=== PATIENT | male | born 1960 | race Caucasian/White ===

== ENCOUNTER 2023-02-17 20:34 | Inpatient (IN) | payer BC, OTHER ==
[2023-02-17 21:01] LABS: #Basophils 0.1 thou/uL (0.0-0.2); #Eosinphils 0.2 thou/uL (0.0-0.7); #Monocytes 0.6 thou/uL (0.11-0.59); #Neutrophils 7.4 thou/uL (1.40-6.50); %Basophils 0.5 % (0.0-1.0); %Eosinophils 1.9 % (0.0-10.0); %Lymphocytes 15.4 % (21.0-51.0); %Monocytes 5.7 % (0.0-10.0); %Neutrophils 76.2 % (42.0-75.0); Hematocrit 51.7 % (42.0-52.0); Hemoglobin 18.1 g/dL (14.0-18.0); Mean Corpuscular Volume 91.5 fl (78.0-98.0); Mean Platelet Volume 9.2 fL (7.4-10.4); Platelet Count 212 10x3/uL (130-400); RBC Distribution Width 13.2 % (11.5-14.5); Red Blood Cell (RBC) Count 5.65 mill/uL (4.70-6.10); White Blood Cell (WBC) Count 9.7 10x3/uL (4.8-10.8)
[2023-02-17 21:24] LABS: Phosphorus 4.3 mg/dL (2.3-4.7)
[2023-02-17 21:26] LABS: ALT (SGPT) 43 U/L (8-55); AST (SGOT) 31 U/L (5-34); Albumin 4.7 g/dL (3.4-4.8); Alkaline Phosphatase 101 U/L (40-110); Anion Gap 15 mmol/L (10-20); BUN (Urea Nitrogen) 22 mg/dL (8.4-25.7); Bilirubin, Total 0.5 mg/dL (0.2-1.2); Calc. Creatinine Clearance 0 mL/min (70-130); Carbon Dioxide 25 mmol/L (23-31); Chloride 99 mmol/L (98-107); Estimated GFR 92; Globulin 2.2 g/dL (2.4-3.5); Glucose 150 mg/dL (80-115); Lipase 30 U/L (8-78); Magnesium 2.1 mg/dL (1.6-2.6); Potassium 4.6 mmol/L (3.5-5.1); Protein, Total 6.9 g/dL (5.8-8.1); Sodium 134 mmol/L (136-145)
[2023-02-17 21:30] LABS: Troponin I Less than 0.010 ng/mL (< 0.028)
[2023-02-17 22:06] LABS: Actual Bicarbonate (HCO3v) 23.5 mEq/L (22-28); Analyzer IN Cardio ER; Base Excess -0.5 mEq/L (-2.0 to +3.0); Calcium, Ionized (venous) 1.17 mmol/L (1.16-1.32); Chloride (VBG) 99 mmol/L (98-106); Hematocrit-VBG 52 % (42.0-52.0); Hemoglobin (Hb) 17.8 g/dL (13.1-17.2); Potassium (VBG) 4.41 mmol/L (3.70-5.30); Sodium 132 mmol/L (133-146)
[2023-02-17 23:47] LABS: Bacteria/HPF None Seen HPF (None Seen); Bilirubin Negative (Negative); Blood, Urine Negative (Negative); CAUTI Indications for Culture Alt mental st,lethar; Clarity Clear (Clear); Glucose, Urine (Dipstick) Normal (Negative); Ketone, Urine 10 mg/dL (Negative); Leukocyte Negative Leu/uL (Negative); Nitrite Negative (Negative); Protein, Urine (Dipstick) Negative (Neg-Trace); RBC/HPF 0-3 HPF (0-3); Squamous Epithelial 0-3 HPF (0-3); WBC/HPF 0-3 HPF (0-3); pH, Urine 5.5 (5.0-9.0)
[2023-02-17 23:52] LABS: Urine Culture Reflex No No
[2023-02-18] MEDS ORDERED: Ondansetron PF 4 MG/2 ML Vial IVP PRN ×2 (00:18→00:30)
[2023-02-18] MEDS ORDERED: Acetaminophen 650 MG Suppository PR PRN (00:18)
[2023-02-18] MEDS ORDERED: Ondansetron ODT 4 MG TAB PO PRN (00:18)
[2023-02-18] MEDS ORDERED: Acetaminophen 325 MG TAB PO PRN (00:30)
[2023-02-18] MEDS ORDERED: Ondansetron ODT 4 MG TAB SL PRN (00:30)
[2023-02-18 03:02] VITALS: BMI 35.6
[2023-02-18 04:08] LABS: #Eosinphils 0.1 thou/uL (0.0-0.7); #Monocytes 0.4 thou/uL (0.11-0.59); #Neutrophils 6.9 thou/uL (1.40-6.50); %Basophils 0.4 % (0.0-1.0); %Eosinophils 1.3 % (0.0-10.0); %Lymphocytes 16.8 % (21.0-51.0); %Monocytes 4.2 % (0.0-10.0); Hematocrit 48.3 % (42.0-52.0); Hemoglobin 16.8 g/dL (14.0-18.0); Mean Corpuscular HGB CONC 34.8 g/dL (32.0-36.0); Mean Corpuscular Hemoglobin 31.8 pg (27.0-31.0); Mean Corpuscular Volume 91.5 fl (78.0-98.0); Mean Platelet Volume 9.5 fL (7.4-10.4); Platelet Count 199 10x3/uL (130-400); RBC Distribution Width 13.2 % (11.5-14.5); Red Blood Cell (RBC) Count 5.28 mill/uL (4.70-6.10)
[2023-02-18 04:38] LABS: Anion Gap 12 mmol/L (10-20); BUN (Urea Nitrogen) 19 mg/dL (8.4-25.7); Calc. Creatinine Clearance 105 mL/min (70-130); Calcium 9.9 mg/dL (7.8-10.44); Carbon Dioxide 29 mmol/L (23-31); Chloride 98 mmol/L (98-107); Estimated GFR 88; Glucose 221 mg/dL (80-115); Potassium 4.5 mmol/L (3.5-5.1); Sodium 134 mmol/L (136-145)
[2023-02-18 06:52] LABS: Hemoglobin A1c 6.7 % (4.0-6.0)
[2023-02-18] MEDS: Aspirin 81 mg Enteric Coated Tablet PO SCH (09:14)
[2023-02-18] MEDS ORDERED: Amoxicillin/Potassium Clav 875 MG TAB PO SCH (11:00)
[2023-02-18] MEDS: Amoxicillin/Potassium Clav 875 MG TAB PO SCH ×2 (11:16→21:30)
[2023-02-18] MEDS ORDERED: ALPRAZolam 0.5 MG TAB PO PRN (12:00)
[2023-02-18] MEDS ORDERED: NIFEdipine XL 30 MG ER.TAB PO SCH (12:15)
[2023-02-18 12:19] LABS: HIV (1/2) Antibody/Antigen Non-Reactive (NonReactive); HIV 1/2 INDEX 0.23 S/CO (<1.00)
[2023-02-18] MEDS: hydrOXYzine 25 MG TAB PO PRN (13:36)
[2023-02-18] MEDS ORDERED: Labetalol HCl 100 MG/20 ML VIAL SLOW IVP SCH (17:00)
[2023-02-18] MEDS: Atorvastatin Calcium 40 MG TAB PO SCH (21:30)
[2023-02-18] MEDS: Acetaminophen 325 MG TAB PO PRN (21:30)
[2023-02-19] MEDS ORDERED: Gabapentin 100 MG CAP PO SCH ×3 (02:30→22:45)
[2023-02-19 04:56] LABS: Hematocrit 48.7 % (42.0-52.0); Hemoglobin 17.4 g/dL (14.0-18.0); Mean Corpuscular HGB CONC 35.7 g/dL (32.0-36.0); Mean Corpuscular Hemoglobin 31.9 pg (27.0-31.0); Mean Corpuscular Volume 89.2 fl (78.0-98.0); Mean Platelet Volume 9.6 fL (7.4-10.4); Platelet Count 190 10x3/uL (130-400); RBC Distribution Width 12.9 % (11.5-14.5); Red Blood Cell (RBC) Count 5.46 mill/uL (4.70-6.10); White Blood Cell (WBC) Count 8.6 10x3/uL (4.8-10.8)
[2023-02-19 05:21] LABS: Anion Gap 13 mmol/L (10-20); BUN (Urea Nitrogen) 18 mg/dL (8.4-25.7); Calc. Creatinine Clearance 132 mL/min (70-130); Calcium 9.8 mg/dL (7.8-10.44); Carbon Dioxide 24 mmol/L (23-31); Chloride 99 mmol/L (98-107); Estimated GFR 101; Glucose 147 mg/dL (80-115); Potassium 3.9 mmol/L (3.5-5.1); Sodium 132 mmol/L (136-145)
[2023-02-19] MEDS ORDERED: NIFEdipine XL 30 MG ER.TAB PO SCH (09:00)
[2023-02-19] MEDS: Aspirin 81 mg Enteric Coated Tablet PO SCH (09:06)
[2023-02-19] MEDS: Amoxicillin/Potassium Clav 875 MG TAB PO SCH ×2 (09:06→20:52)
[2023-02-19 12:19] LABS: Syphilis Antibody Nonreactive (Nonreactive); Syphilis Antibody Index 0.02 S/CO (<1.00 Non-Reactive)
[2023-02-19] MEDS: hydrOXYzine 25 MG TAB PO PRN (14:39)
[2023-02-19] MEDS: Gabapentin 100 MG CAP PO SCH (20:52)
[2023-02-19] MEDS: NIFEdipine XL 30 MG ER.TAB PO SCH (20:53)
[2023-02-19] MEDS: Atorvastatin Calcium 40 MG TAB PO SCH (20:53)
[2023-02-19 22:27] LABS: Troponin I Less than 0.010 ng/mL (< 0.028)
[2023-02-20] MEDS: Gabapentin 100 MG CAP PO SCH ×2 (08:04→21:21)
[2023-02-20] MEDS: Amoxicillin/Potassium Clav 875 MG TAB PO SCH ×2 (08:04→21:21)
[2023-02-20] MEDS: NIFEdipine XL 30 MG ER.TAB PO SCH ×2 (08:04→21:22)
[2023-02-20] MEDS: Aspirin 81 mg Enteric Coated Tablet PO SCH (08:04)
[2023-02-20] MEDS ORDERED: ALPRAZolam 0.5 MG TAB PO PRN (09:50)
[2023-02-20] MEDS: Loratadine 10 MG TAB PO PRN ×2 (15:18→21:25)
[2023-02-20] MEDS ORDERED: Metoprolol Tartrate 5 MG/5 ML VIAL IVP SCH (18:32)
[2023-02-20] MEDS: Atorvastatin Calcium 40 MG TAB PO SCH (21:21)
[2023-02-20] MEDS: Melatonin 3 MG TAB PO PRN (21:37)
[2023-02-21] MEDS ORDERED: Metoclopramide HCl 10 MG/2 ML VIAL IVP SCH (04:15)
[2023-02-21] MEDS: NIFEdipine XL 30 MG ER.TAB PO SCH ×2 (10:19→21:17)
[2023-02-21] MEDS: Aspirin 81 mg Enteric Coated Tablet PO SCH (10:19)
[2023-02-21] MEDS: Amoxicillin/Potassium Clav 875 MG TAB PO SCH ×2 (10:19→21:17)
[2023-02-21] MEDS: Fluticasone Propionate Nasal Spray 16 gm Bottle NASAL SCH (10:20)
[2023-02-21] MEDS: Cyanocobalamin (Vitamin B-12) 1,000 MCG TAB PO SCH (10:20)
[2023-02-21] MEDS: Gabapentin 100 MG CAP PO SCH ×2 (10:20→21:16)
[2023-02-21] MEDS ORDERED: Calcium Carbonate 500 MG ChewTAB PO SCH (20:15)
[2023-02-21] MEDS ORDERED: ALPRAZolam 0.5 MG TAB PO SCH (21:00)
[2023-02-22 04:18] LABS: Hematocrit 50.5 % (42.0-52.0); Hemoglobin 17.9 g/dL (14.0-18.0); Mean Corpuscular HGB CONC 35.4 g/dL (32.0-36.0); Mean Corpuscular Hemoglobin 31.6 pg (27.0-31.0); Mean Corpuscular Volume 89.1 fl (78.0-98.0); Mean Platelet Volume 9.4 fL (7.4-10.4); Platelet Count 234 10x3/uL (130-400); RBC Distribution Width 12.6 % (11.5-14.5); Red Blood Cell (RBC) Count 5.67 mill/uL (4.70-6.10); White Blood Cell (WBC) Count 9.2 10x3/uL (4.8-10.8)
[2023-02-22] MEDS: Cyanocobalamin (Vitamin B-12) 1,000 MCG TAB PO SCH (08:51)
[2023-02-22] MEDS: NIFEdipine XL 30 MG ER.TAB PO SCH ×2 (08:51→20:36)
[2023-02-22] MEDS: Gabapentin 100 MG CAP PO SCH ×2 (08:51→20:31)
[2023-02-22] MEDS: Fluticasone Propionate Nasal Spray 16 gm Bottle NASAL SCH (08:51)
[2023-02-22] MEDS: Thiamine 100 MG TAB PO SCH (08:51)
[2023-02-22] MEDS: Amoxicillin/Potassium Clav 875 MG TAB PO SCH ×2 (08:51→20:31)
[2023-02-22 08:56] LABS: Anion Gap 15 mmol/L (10-20); BUN (Urea Nitrogen) 17 mg/dL (8.4-25.7); Calc. Creatinine Clearance 129 mL/min (70-130); Calcium 10.1 mg/dL (7.8-10.44); Carbon Dioxide 24 mmol/L (23-31); Chloride 98 mmol/L (98-107); Estimated GFR 100; Glucose 157 mg/dL (80-115); Sodium 133 mmol/L (136-145)
[2023-02-22] MEDS ORDERED: Calcium Carbonate 500 MG ChewTAB PO PRN (09:00)
[2023-02-22] MEDS ORDERED: Magnevist 469MG/ML 20 ML VIAL ONE (11:27)
[2023-02-22] MEDS ORDERED: ALPRAZolam 0.5 MG TAB PO SCH (14:45)
[2023-02-22] MEDS: ALPRAZolam 0.5 MG TAB PO PRN ×2 (14:50→22:11)
[2023-02-22] MEDS ORDERED: Metoprolol Tartrate 5 MG/5 ML VIAL IVP PRN (16:18)
[2023-02-22] MEDS ORDERED: Losartan 25 MG TAB PO SCH (16:18)
[2023-02-22] MEDS: hydrOXYzine 25 MG TAB PO PRN (16:35)
[2023-02-22] MEDS: Acetaminophen 325 MG TAB PO PRN (16:39)
[2023-02-22] MEDS ORDERED: Polyethylene Glycol 3350 17 GM Packet PO PRN (17:42)
[2023-02-22] MEDS: Melatonin 3 MG TAB PO PRN (22:11)
[2023-02-23 04:34] LABS: #Basophils 0.1 thou/uL (0.0-0.2); #Eosinphils 0.1 thou/uL (0.0-0.7); #Monocytes 0.8 thou/uL (0.11-0.59); #Neutrophils 10.5 thou/uL (1.40-6.50); %Basophils 0.5 % (0.0-1.0); %Eosinophils 0.7 % (0.0-10.0); %Monocytes 5.7 % (0.0-10.0); %Neutrophils 79.7 % (42.0-75.0); Hemoglobin 17.4 g/dL (14.0-18.0); Mean Corpuscular HGB CONC 35.5 g/dL (32.0-36.0); Mean Corpuscular Hemoglobin 31.8 pg (27.0-31.0); Mean Corpuscular Volume 89.6 fl (78.0-98.0); Mean Platelet Volume 9.8 fL (7.4-10.4); Platelet Count 262 10x3/uL (130-400); RBC Distribution Width 12.7 % (11.5-14.5); Red Blood Cell (RBC) Count 5.47 mill/uL (4.70-6.10); White Blood Cell (WBC) Count 13.1 10x3/uL (4.8-10.8)
[2023-02-23 05:01] LABS: Anion Gap 15 mmol/L (10-20); BUN (Urea Nitrogen) 22 mg/dL (8.4-25.7); Calc. Creatinine Clearance 121 mL/min (70-130); Carbon Dioxide 23 mmol/L (23-31); Chloride 97 mmol/L (98-107); Estimated GFR 99; Glucose 140 mg/dL (80-115); Sodium 131 mmol/L (136-145)
[2023-02-23] MEDS: Fluticasone Propionate Nasal Spray 16 gm Bottle NASAL SCH (09:11)
[2023-02-23] MEDS: NIFEdipine XL 30 MG ER.TAB PO SCH ×2 (09:12→20:35)
[2023-02-23] MEDS: Losartan 25 MG TAB PO SCH (09:12)
[2023-02-23] MEDS: Amoxicillin/Potassium Clav 875 MG TAB PO SCH ×2 (09:12→20:34)
[2023-02-23] MEDS: Gabapentin 100 MG CAP PO SCH ×3 (09:13→20:32)
[2023-02-23] MEDS: Cyanocobalamin (Vitamin B-12) 1,000 MCG TAB PO SCH (09:14)
[2023-02-23] MEDS: Thiamine 100 MG TAB PO SCH (09:14)
[2023-02-23] MEDS ORDERED: tiZANidine HCl 4 MG TAB PO SCH (11:45)
[2023-02-23] MEDS: Sodium Chloride 0.9% 1,000 ML IV SCH ×2 (12:36→23:30)
[2023-02-23] MEDS: tiZANidine HCl 4 MG TAB PO SCH (20:32)
[2023-02-23] MEDS ORDERED: Polyethylene Glycol 3350 17 GM Packet PO PRN (21:18)
[2023-02-24 00:40] LABS: Bacteria/HPF None Seen HPF (None Seen); Bilirubin Negative (Negative); Blood, Urine Negative (Negative); CAUTI Indications for Culture Dysuria,urgency,freq; Clarity Clear (Clear); Glucose, Urine (Dipstick) Normal (Negative); Ketone, Urine Negative (Negative); Leukocyte Negative Leu/uL (Negative); Nitrite Negative (Negative); Protein, Urine (Dipstick) Negative (Neg-Trace); RBC/HPF None Seen HPF (0-3); Specific Gravity, Urine 1.012 (1.002-1.036); Squamous Epithelial 0-3 HPF (0-3); Urobilinogen Normal mg/dL (Less than 2); WBC/HPF 0-3 HPF (0-3)
[2023-02-24 00:41] LABS: Urine Culture Reflex No No
[2023-02-24 05:01] LABS: #Eosinphils 0.3 thou/uL (0.0-0.7); #Monocytes 0.7 thou/uL (0.11-0.59); #Neutrophils 8.2 thou/uL (1.40-6.50); %Basophils 0.4 % (0.0-1.0); %Eosinophils 2.5 % (0.0-10.0); %Lymphocytes 12.6 % (21.0-51.0); %Monocytes 6.6 % (0.0-10.0); %Neutrophils 77.6 % (42.0-75.0); Hematocrit 47.1 % (42.0-52.0); Hemoglobin 16.5 g/dL (14.0-18.0); Mean Corpuscular Volume 91.3 fl (78.0-98.0); Mean Platelet Volume 9.5 fL (7.4-10.4); Platelet Count 233 10x3/uL (130-400); RBC Distribution Width 13.1 % (11.5-14.5); Red Blood Cell (RBC) Count 5.16 mill/uL (4.70-6.10); White Blood Cell (WBC) Count 10.6 10x3/uL (4.8-10.8)
[2023-02-24 05:48] LABS: Anion Gap 16 mmol/L (10-20); BUN (Urea Nitrogen) 37 mg/dL (8.4-25.7); Calc. Creatinine Clearance 66 mL/min (70-130); Calcium 9.3 mg/dL (7.8-10.44); Carbon Dioxide 21 mmol/L (23-31); Chloride 98 mmol/L (98-107); Estimated GFR 51; Glucose 131 mg/dL (80-115); Potassium 3.9 mmol/L (3.5-5.1); Sodium 131 mmol/L (136-145)
[2023-02-24] MEDS: Cyanocobalamin (Vitamin B-12) 1,000 MCG TAB PO SCH (08:26)
[2023-02-24] MEDS: Gabapentin 100 MG CAP PO SCH ×2 (08:26→15:49)
[2023-02-24] MEDS: NIFEdipine XL 30 MG ER.TAB PO SCH ×2 (08:27→20:52)
[2023-02-24] MEDS: tiZANidine HCl 4 MG TAB PO SCH ×2 (08:27→20:51)
[2023-02-24] MEDS: Thiamine 100 MG TAB PO SCH (08:27)
[2023-02-24] MEDS: Fluticasone Propionate Nasal Spray 16 gm Bottle NASAL SCH (08:27)
[2023-02-24] MEDS: Losartan 25 MG TAB PO SCH (08:27)
[2023-02-24] MEDS: Sodium Chloride 0.9% 1,000 ML IV SCH ×2 (15:50→20:53)
[2023-02-24] MEDS ORDERED: Gabapentin 300 MG CAP PO SCH (21:00)
[2023-02-25] MEDS: ALPRAZolam 0.5 MG TAB PO PRN (02:39)
[2023-02-25 07:10] LABS: #Eosinphils 0.2 thou/uL (0.0-0.7); #Monocytes 0.5 thou/uL (0.11-0.59); #Neutrophils 6.3 thou/uL (1.40-6.50); %Basophils 0.5 % (0.0-1.0); %Eosinophils 2.6 % (0.0-10.0); %Lymphocytes 14.3 % (21.0-51.0); %Monocytes 6.2 % (0.0-10.0); %Neutrophils 75.9 % (42.0-75.0); Hematocrit 46.5 % (42.0-52.0); Hemoglobin 16.4 g/dL (14.0-18.0); Mean Corpuscular HGB CONC 35.3 g/dL (32.0-36.0); Mean Corpuscular Hemoglobin 32.2 pg (27.0-31.0); Mean Corpuscular Volume 91.4 fl (78.0-98.0); Mean Platelet Volume 9.5 fL (7.4-10.4); Platelet Count 241 10x3/uL (130-400); RBC Distribution Width 12.6 % (11.5-14.5); Red Blood Cell (RBC) Count 5.09 mill/uL (4.70-6.10); White Blood Cell (WBC) Count 8.4 10x3/uL (4.8-10.8)
[2023-02-25 07:41] LABS: Anion Gap 13 mmol/L (10-20); BUN (Urea Nitrogen) 25 mg/dL (8.4-25.7); Calc. Creatinine Clearance 128 mL/min (70-130); Calcium 9.6 mg/dL (7.8-10.44); Carbon Dioxide 21 mmol/L (23-31); Chloride 103 mmol/L (98-107); Estimated GFR 100; Glucose 116 mg/dL (80-115); Potassium 4.3 mmol/L (3.5-5.1); Sodium 133 mmol/L (136-145)
[2023-02-25] MEDS: Cyanocobalamin (Vitamin B-12) 1,000 MCG TAB PO SCH (08:57)
[2023-02-25] MEDS: NIFEdipine XL 30 MG ER.TAB PO SCH (08:57)
[2023-02-25] MEDS: Losartan 25 MG TAB PO SCH (08:57)
[2023-02-25] MEDS: Thiamine 100 MG TAB PO SCH (08:57)
[2023-02-25] MEDS: tiZANidine HCl 4 MG TAB PO SCH (08:57)
[2023-02-25] MEDS: Gabapentin 100 MG CAP PO SCH ×2 (09:03→14:04)
[2023-02-25 11:52] VITALS: TEMP 97.4
[2023-02-25] MEDS: Sodium Chloride 0.9% 1,000 ML IV SCH ×2 (14:10→16:50)
[2023-02-25 15:13] LABS: Erythropoietin 3.1 mIU/mL (2.6-18.5)
[2023-02-25 16:05] VITALS: BP 139/91
== END 2023-02-25 18:28 | DRG 92 ==
LOC: ERS 20:34 → 2NO 02-18 00:22 → OBSVTOIN 02-20 14:12
PROVIDERS: ADMIT Student in an Organized Health Care Education/Training Program; ATTEND Internal Medicine
PROC: 4A043R1 Measurement of Venous Saturation, Peripheral, Percutaneous Approach (ICD-10-PCS; principal; 2023-02-17)
DX: R27.0 Ataxia, unspecified (principal); E87.1 Hypo-osmolality and hyponatremia; N17.9 Acute kidney failure, unspecified; E66.9 Obesity, unspecified; Z68.35 Body mass index [BMI] 35.0-35.9, adult; Z88.1 Allergy status to other antibiotic agents; Z79.84 Long term (current) use of oral hypoglycemic drugs; Z79.899 Other long term (current) drug therapy; F17.220 Nicotine dependence, chewing tobacco, uncomplicated; Z79.82 Long term (current) use of aspirin; R20.2 Paresthesia of skin; E11.65 Type 2 diabetes mellitus with hyperglycemia; I10 Essential (primary) hypertension; R32 Unspecified urinary incontinence; D75.1 Secondary polycythemia
CPT/HCPCS: 36415; 36416; 70450; 70551; 71045; 72141; 72158; 80048; 80053; 81001; 81270; 82010; 82550; 82607; 82668; 82805; 83036; 83690; 83735; 83880; 84100; 84425; 84443; 84484; 85025; 85027; 86780; 87389; 93005; 93010; 96372; 96374; 99284; A9579; G0378; J1650; J7050; Q0162